=== PATIENT | male | born 1995 | race Two or more races ===

== ENCOUNTER 2024-06-30 11:25 | Emergency (ER) | payer OTHER ==
[~2024-06-30] VITALS: Ht 180.3 cm; Wt 126.0 kg
[2024-06-30 11:45] VITALS: BP 132/84; PULSE 66; RESP 18; TEMP 98.2; O2SAT 98
== END 2024-06-30 11:49 | disposition left against medical advice (07) ==
LOC: ER 11:28
DX: R51.9 Headache, unspecified (principal); Z53.21 Procedure and treatment not carried out due to patient leaving prior to being seen by health care provider; V89.2XXA Person injured in unspecified motor-vehicle accident, traffic, initial encounter; Y93.89 Activity, other specified; Y92.89 Other specified places as the place of occurrence of the external cause; Y99.8 Other external cause status